=== PATIENT | male | born 1945 | race Caucasian/White ===

== ENCOUNTER → 2016-06-17 | Outpatient (CLI) | payer MEDICARE, OTHER ==
[~2016-06-17] MED LIST: ACTOS PO; ALDARA TOP; AMLACTIN140 GM TOP; ASPIRIN PO; ASPIRIN81 M2 PO; ASPIRIN81 MG PO; CELEBREX PO; COREG3.125 MG PO; COREG6.25 MG PO; CYCLOSET0.8 MG PO; EC-NAPROSYN500 MG PO; EFFIENT10 MG PO; GABAPENTIN300 M2 PO; GLIPIZIDE10 MG PO; GLUCOPHAGE850 MG PO; GLUCOTROL PO; GLUCOVANCE 2.5/1 TA1 PO; HCTZ PO; HYDROCHLOROTHIA25 MG PO; HYDROCODON-ACE1 EAC9 PO; IMDUR30 MG PO; LIPITOR PO; LIPITOR20 MG PO; LISINOPRIL PO; LISINOPRIL20 MG PO; LOVAZA1 G PO; METFORMIN HCL850 MG PO; METFORMIN PO; METROGEL 1% KIT1 EA TP; NEURONTIN300 MG PO; NITROGLYGERIN0.4 MG SL; NORVASC10 MG PO; PERCOCET5/325 PO; PRILOSEC20 M1 PO; PRILOSEC20 MG PO; TARKA 4/2401 BOTTLE PO; VERAPAMIL ER240 MG PO; VIMOVO 500-201 EACH PO; VIT B-12 PO; VITAMIN B12-FO1 EACH PO; WELCHOL3.75 GM PO
--- NOTE | ~2016-06-17 | MR134 ---
[facility] A Service of [facility] RADIOLOGY TEXT RESULTS PATIENT: JOHNATHAN STEWART LOCATION: CMRI : 47 UNIT #: [id number] AGE: [address]: García Gordillo II, MD SEX: M ORDER DR: [id number] [facility] [address] [place], [place] [address] [id number] O MR#: [id number] Acc #: [id number] NAME: JOHNATHAN STEWART. : 1945 SEX: M STUDY DATE/TIME: 06/17/2016 17:00 UNIT: CMRI ROOM: STUDY DESCRIPTION: MR MRA Neck Wo Contrast Attending Physician: García Gordillo II., M.D. Referring Physician: García Gordillo II., M.D. Ordering Physician: García Gordillo II., M.D. Primary Care Physician: Primary Care Physician No MRI CENTER REPORT This report is preliminary unless electronic signature is present. EXAM Neck MRA without contrast PROCEDURE Axial jodt-wm-ehbjyi neck MRA with three-dimensional reformats HISTORY Left arm numbness since September 2015. History of mini strokes. PROCEDURE Axial pwvw-ge-fyiqhn neck MRA with three-dimensional reformats. Both 2-D and 3-D acquisitions were performed through the carotid bifurcations. FINDINGS Both common internal and external carotid arteries are patent. The right carotid bifurcation is normal with no evidence of plaque or stenosis in the internal carotid by NASCET or other criteria. There does appear to be plaque in the left carotid bifurcation but no more than 20% left ICA stenosis by NASCET criteria. Both vertebral arteries are patent throughout the neck. IMPRESSION 0% right and 20% left ICA stenosis by NASCET criteria. Patent common and internal and external carotid and vertebral arteries bilaterally. Dictated by... Emmett Hart M.D. THIS IS AN ELECTRONICALLY VERIFIED REPORT Emmett Hart M.D. at 06/18/2016 1:51 PM TEV/to [facility] A Service of [facility] RADIOLOGY TEXT RESULTS PATIENT: JOHNATHAN STEWART LOCATION: CMRI : 47 UNIT #: [id number] AGE: [address]: García Gordillo II, MD SEX: M ORDER DR: TD: 06/18/2016 11:45 JOB #: [id number] MRI CENTER REPORT Page 1 of 1 COPY
--- NOTE | ~2016-06-17 | MR122 ---
[facility] A Service [facility] RADIOLOGY TEXT RESULTS PATIENT: JOHNATHAN STEWART LOCATION: CMRI : 47 UNIT #: [id number] AGE: [address]: García Gordillo II, MD SEX: M ORDER DR: [id number] [facility] [address] [place], [place] [address] [id number] O MR#: [id number] Acc #: [id number] NAME: JOHNATHAN STEWART. : 1945 SEX: M STUDY DATE/TIME: 06/17/2016 16:52 UNIT: CMRI ROOM: STUDY DESCRIPTION: MR MRA Head Wo Contrast Attending Physician: García Gordillo II., M.D. Referring Physician: García Gordillo II., M.D. Ordering Physician: García Gordillo II., M.D. Primary Care Physician: No Primary Care Physician MRI CENTER REPORT This report is preliminary unless electronic signature is present. EXAM Intracranial MR angiogram HISTORY Left arm numbness chronically over the past 1.5 years with previous history of TIAs. TECHNIQUE MR angiographic imaging was performed from the skull base to the [place] of [place]. FINDINGS As a normal variant, left A1 segment is absent or hypoplastic and both anterior cerebral arteries fill promptly from the right. There is no evidence of severe intracranial stenosis. No major branch vessel cutoff is noted. The basilar artery is of small caliber. No basilar stenoses are seen. No aneurysms are noted. IMPRESSION No acute findings. No evidence of aneurysm or major branch vessel cutoff or stenosis. As a normal variant, the left A1 segment is hypoplastic or absent and both anterior cerebral arteries fill predominantly from the right. Dictated by... Eric Rodriguez M.D. THIS IS AN ELECTRONICALLY VERIFIED REPORT Eric Rodriguez M.D. at 06/18/2016 10:46 AM RLF/cecy TD: 06/18/2016 10:16 [facility] A Service [facility] RADIOLOGY TEXT RESULTS PATIENT: JOHNATHAN STEWART LOCATION: [facility] : 47 UNIT #: [id number] AGE: [address]: García Gordillo II, MD SEX: M ORDER DR: JOSE #: [id number] MRI CENTER REPORT Page 1 of 1 COPY
== END | disposition home or self-care (01) ==
LOC: CMRI 15:51
DX: I63.9 Cerebral infarction, unspecified (principal); I65.22 Occlusion and stenosis of left carotid artery
CPT/HCPCS: 70544; 70547; 96372

== ENCOUNTER → 2016-07-02 | Outpatient (CLI) | payer OTHER | END | disposition home or self-care (01) | LOC: CECH 11:53 | DX: I63.9 Cerebral infarction, unspecified (principal) | CPT/HCPCS: 93306 ==

== ENCOUNTER 2016-10-06 16:40 | Inpatient (IN) | payer MEDICARE, OTHER ==
--- NOTE | ~2016-10-06 | DS ---
Unit #: [id number] #: [id number] Patient: JOHNATHAN LEY [id number] [address] [address] [id number] I MR#: [id number] NAME: JOHNATHAN LEY. ROOM: 551 Age: 71 Sex: M Admission Date: 10/06/2016 : 1945 Discharge Date: 10/08/2016 Attending Physician: Mikki Leal M.D. Primary Care Physician: Jhonny Koroma M.D. DISCHARGE SUMMARY PRIMARY CARE PHYSICIAN Jhonny Koroma M.D. PRINCIPAL DIAGNOSES 1. Hypotension, medication induced. 2. Bradycardia, medication induced. 3. Acute kidney injury secondary to hypotension. Discharge creatinine 1.2. 4. Hypertension, now uncontrolled. 5. Sick sinus syndrome. 6. Coronary artery disease status post stenting. 7. Hyperlipidemia with intolerance of statins. 8. Diabetes mellitus type 2, non-insulin requiring, but with associated peripheral neuropathy. 9. Gastroesophageal reflux disease. 10. Benign prostatic hypertrophy. 11. Status post skin cancer excision. 12. Obesity. 13. Osteoarthritis. 14. Hyperkalemia, now resolved. CONSULTANTS Dr. Bajwa - Cardiology. PROCEDURES 1. Lexiscan Cardiolite, which was negative for any ischemia. 2. Chest x-ray on October 06, 2016, with prominence of interstitial markings, healed granulomatous disease noted. CLINICAL HISTORY/HOSPITAL COURSE Mr. Ley is a very nice 71-year-old male who presents to the emergency department with dizziness, nausea and headache. In the emergency department, he is found to be hypotensive, in addition to being bradycardic with a heart rate in the 40s. He was also mildly hyperkalemic and creatinine was elevated at 1.5. The patient was given IV fluids and started on a low-dose dopamine drip and admitted to the hospital. Fortunately, the patient's blood pressure and heart rate improved and dopamine was discontinued. There was some discrepancy regarding his medications given he had [facility], but after review he appeared to unfortunately still be taking them, thus his hypotension and his bradycardia were likely medication induced. Unit #: [id number] #: [id number] Patient: BROWN,JOSE JUAN With adjustments of medication here, heart rate is now back up into the 70s and we are going to re-initiate a low dose of coreg. We will hold on any calcium channel blockers at this time. Blood pressure this morning is still mildly elevated and we are going to re-initiate some home medications and discharge later today if systolic blood pressure is running in the 150-160 range. Given the patient's complaint of fatigue and headache and such, Cardiology proceeded with stress test, but this is unremarkable. The patient also has significant hyperlipidemia, but is intolerant of statins due to significant myalgias. He would benefit from Repatha as an outpatient and this will be followed up by Dr. Bajwa. In regards to the patient's elevated kidney function, with cessation of medications and IV fluids, renal function has improved. I am going to re-initiate Lisinopril upon discharge given creatinine has improved and potassium is normal, but BMP will have to be followed up closely as an outpatient. The patient will be discharged home later today assuming blood pressure is improved. DISCHARGE CONDITION Stable. DISCHARGE STATUS Discharge to home. DISCHARGE MEDICATIONS 1. Neurontin 300 mg b.i.d. 2. Metformin 850 mg p.o. t.i.d. 3. Coreg 3.125 mg p.o. b.i.d. 4. Norvasc 10 mg daily 5. Lisinopril 20 mg daily 6. Aspirin 81 mg daily 7. Prilosec 20 mg daily 8. Glucotrol 20 mg b.i.d. 9. Vitamin B12/folic acid tablet one daily. DISCHARGE INSTRUCTIONS The patient was instructed to follow a heart healthy, constant carbohydrate diet. He will continue AccuChek a.c. and at bedtime at home. He can increase his activity as tolerated. FOLLOWUP The patient will follow up with Dr. Bajwa on November 20 at 3:15 in the afternoon. The patient can follow up with his primary care provider, Dr. Koroma in three weeks, needs repeat BMP at that time and again I will note, the patient needs Repatha arranged as an outpatient in regards to his hyperlipidemia. Dictated by... Mikki Leal M.D. GARY/mary TD: 10/08/2016 18:24 Unit #: [id number] #: [id number] Patient: JOHNATHAN LEY JOB #: [id number] DISCHARGE SUMMARY Page 1 of 1 X Mikki Leal MD X DISCHARGE SUMMARY
--- NOTE | ~2016-10-06 | CO ---
Unit #: [id number] #: [id number] Patient: JOHNATHAN STEWART [id number] [facility]. [place], [place] [address] [id number] I MR#: [id number] NAME: JOHNATHAN STEWART. ROOM: 551 Age: 71 Sex: M Admission Date: 10/06/2016 : 1945 Attending Physician: Mikki Leal M.D. Primary Care Physician: Jhonny Koroma M.D. Consultation Date: 10/07/2016 CONSULTATION REPORT REASON FOR CONSULTATION Chest pain and bradycardia. HISTORY OF PRESENT ILLNESS This is a 71-year-old male known to Dr. Bajwa with a prior medical history of coronary artery disease status post stents to his left circumflex, marginal, first diagonal, and distal LAD. His last cardiac cath in 2013 showed patent stents, 90% distal LAD near apex and 50% RV branch. At that time, it was decided to optimize medical management. An echocardiogram, June 2016, showed a LV EF of 55%, wrsm-mt-vywzkeks mitral regurgitation, and left ventricular hypertrophy. In addition, he has a history of diabetes mellitus, hypertension, hyperlipidemia, TIA in 2015, and reported tobacco abuse. He presented to the ER with dizziness, weakness, and low blood pressures. States he had been feeling fatigued for the last two weeks with increased shortness of air with activity and intermittent chest discomfort. He described his chest discomfort as left chest tightness and pressure with some lightheadedness that occurs while at rest or with activity. States that chest discomfort resolves spontaneously within a few minutes. His blood pressure in the ER was low, 87/60 to 94/52 and his heart rate was in the 40s junctional rhythm. He was placed on a dopamine drip with improvement in his heart rate. EKG showed no ischemic changes and his troponins were negative for ischemia as well. Patient denies radiating chest pain. Denies orthopnea or PND. He does report a near syncopal episode that occurred approximately 10 days ago. He states he was grilling outside and came in and sat down to eat and felt very dizzy, lightheaded with blurred vision. States he checked his blood pressure and it was in the low 70s. Symptoms resolved with rest. PAST MEDICAL HISTORY 1. Coronary artery disease, status post PTCA and stent to proximal circumflex in 2010, PTCA to distal LAD in April 2012, and PTCA with drug-eluting stent to anterior division of first diagonal branch of LAD in March 2012. 2. Cardiac cath in 2013 revealed patent stents, 90% distal LAD near apex, and 50% RV branch. 3. Echocardiogram, June 2016, revealed LV EF 55%, kntv-au-erkztced mitral regurgitation, and left ventricular hypertrophy. 4. Diabetes mellitus. 5. Hypertension. 6. Hyperlipidemia. 7. TIA in 2015. 8. Reformed tobacco abuse. Unit #: [id number] #: [id number] Patient: JOHNATHAN STEWART 9. Degenerative joint disease with chronic pain. 10. Benign prostatic hypertrophy. 11. Skin cancer with multiple skin cancer excisions. SOCIAL HISTORY He stopped smoking over 40 years ago. He normally drinks two to three beers a day but has not had any alcohol in the last two weeks. He lives with his who is a retired RN. FAMILY HISTORY His father at the age of 69 of black lung disease and cardiac disease. His brother, Dav, is 44 years old and has coronary artery disease and diabetes. PAST SURGICAL HISTORY 1. Arthroscopic right knee surgery. 2. Cardiac catheterization. 3. Skin cancer excision. 4. Cataract extraction. ALLERGIES Penicillin, Terramycin, and statins. HOME MEDICATIONS 1. Neurontin 300 mg p.o. twice a day. 2. Zestril 20 mg p.o. daily. 3. Metformin 850 mg p.o. three times a day. 4. Verapamil ER 240 mg p.o. daily. 5. Coreg 6.25 mg p.o. twice a day. 6. Prilosec 20 mg p.o. daily. 7. Vitamin B12 with folate one each once a day. 8. Hydrochlorothiazide 25 mg p.o. daily. 9. Glucotrol 20 mg p.o. twice a day before meals. 10. Imdur 30 mg p.o. daily. REVIEW OF SYSTEMS Positive for headache, nausea, lightheadedness, chest pressure, and tightness, chronic back pain, and dyspnea on exertion. Denies radiating pain. He does report that he wakes himself up with snoring. PHYSICAL EXAMINATION VITAL SIGNS: Temperature 98.4, heart rate 58, respiratory rate 20, blood pressure 141/62. Height 70 inches. Weight 116.2 kg. GENERAL: Very pleasant 71-year-old male resting in bed in no acute distress. HEENT: Head is atraumatic, normocephalic. Pupils are equal and round. Mucous membranes are moist. NECK: Supple. Trachea is midline. Negative for JVD. No carotid bruits. Carotid massage was performed and did not cause the patient's heart rate to slow. LUNGS: Clear and decreased in bases. Nonlabored respirations. CARDIOVASCULAR: S1, S2. Regular rate and rhythm. No murmur, rubs, or gallops. ABDOMEN: Soft, nontender, nondistended. EXTREMITIES: Pulses are palpable. No pedal edema. No cyanosis. NEUROLOGIC: Alert and oriented x3. Moves all extremities equally and follows commands without difficulty. Unit #: [id number] #: [id number] Patient: JOHNATHAN STEWART DIAGNOSTIC STUDIES LABORATORY: Sodium 135, potassium 4.6, chloride 100, BUN 22, creatinine 1.5, glucose 190. Hemoglobin 10.7, hematocrit 325, white blood cell count 7.8, platelets 139,000. AST 24, ALT 28, alkaline phosphatase 55. Point of care troponin was less than 0.05 and repeat troponins x2 were less than 0.03. IMAGING: Chest x-ray showed no acute findings. CARDIOVASCULAR: EKG done in the ER showed junctional rhythm with a ventricular rate of 42, nonspecific T-wave abnormalities, and a left axis deviation. EKG this morning shows sinus rhythm with a rate of 65. ASSESSMENT 1. Symptomatic bradycardia, secondary to sick sinus syndrome superimposed on beta cecil and calcium channel cecil effect. 2. Fatigue secondary to obstructive sleep apnea versus medications, hydrocodone and Neurontin. 3. Obesity. 4. Coronary artery disease, status post percutaneous coronary intervention and stents. 5. Stable angina. 6. Diabetes mellitus type 2. 7. Hyperlipidemia. 8. Reformed tobacco abuse. PLAN 1. We will discontinue Coreg and verapamil. 2. Walking Lexiscan Cardiolite study. 3. Nocturnal spirometry tonight. 4. Decreased Neurontin dosage to 300 mg q.i.d. 5. Up ad sergei in his room. 6. Check TSH. 7. Discontinue IV fluids. 8. Hemoglobin A1c. 9. Will add Norvasc for blood pressure control. Thank you for asking us to see this patient. We appreciate the consult. Dictated by... Jeanette Llamas APRN for Brionna Oconnor TD: 10/07/2016 15:41 JOB #: [id number] Unit #: [id number] #: [id number] Patient: JOHNATHAN STEWART CONSULTATION REPORT Page 1 of 1 X X CONSULTATION REPORT
--- NOTE | ~2016-10-06 | HP ---
Unit #: [id number] #: [id number] Patient: JOHNATHAN STEWART [id number] [facility]. [place], [place] [address] [id number] I MR#: [id number] NAME: JOHNATHAN STEWART. ROOM: 08725 Age: 71 Sex: M Admission Date: 10/06/2016 : 1945 Attending Physician: Cha Giles M.D. Primary Care Physician: Jhonny Koroma M.D. HISTORY AND PHYSICAL CHIEF COMPLAINT Dizziness, nausea, and headache. HISTORY OF PRESENT ILLNESS This pleasant 71-year-old male with CAD and normal LV function, AODM, and hypertension, is admitted for symptomatic bradycardia and hypotension. The patient states that about nine days ago he began to experience nausea, posterior headaches, and some dry heaves. He has been more fatigued, sleeping more, and experiencing episodes of lightheadedness. His reports that nine days ago after working in the heat, the patient had a near syncopal episode, and his systolic blood pressure was about 78. He had another episode where he was lightheaded after standing a couple of days ago. The patient also notes chest discomfort for the past two weeks oftentimes occurring at rest but also can occur with exertion radiating to the left arm. He presented to this emergency department this evening with a heart rate of 46 and blood pressure 94/52. EKG showed a junctional bradycardia. In reviewing the patient's home medicines, the patient is prescribed carvedilol, Cardura which was added about two weeks ago, and hydrochlorothiazide. However, he has an old list, and he may still be taking the verapamil and lisinopril from the old list, along with Imdur. He is unsure. His who is a nurse is going to check his medications at home. In addition to the above, patient does have a creatinine of 1.5 with a potassium of 5.7. In the ER, he was bolused with two liters of IV fluids, given Tylenol, and started on a low-dose dopamine drip, and his current heart rate is now 50 with a blood pressure of 136/68. The patient is feeling somewhat improved. He was also given calcium gluconate IV, along with D50, followed by 10 units of IV regular insulin, along with 3 amps of bicarbonate and IV fluids. PAST MEDICAL HISTORY 1. Adult-onset diabetes mellitus with peripheral neuropathy. 2. Benign prostatic hypertrophy. 3. Degenerative joint disease with chronic pain. 4. Hyperlipidemia. 5. Coronary artery disease, status post PCI and stents. Last cardiac catheterization by Dr. Bajwa in June 2013 showed that the stents were patent, although there was a 50% stenosis of the right ventricular branch and 90% stenosis of a very focal small area of the LAD near the apex. Unit #: [id number] #: [id number] Patient: JOHNATHAN STEWART 6. Hypertension. 7. Mini-strokes seen on MRI scan last year at the [facility]. 8. Arthroscopic right knee surgery. 9. Skin cancer with multiple skin cancers excised. 10. Cataract extraction. ALLERGIES Terramycin, penicillin, and statins. HOME MEDICATIONS 1. Coreg 6.25 mg b.i.d. 2. Cardura recently added 8 mg at bedtime. 3. Fish oil 1000 mg b.i.d. 4. Neurontin 600 mg q.i.d. 5. Glipizide 10 mg 2 tablets b.i.d. 6. Hydrochlorothiazide 25 mg daily. 7. [place] 2.5 mg q.6 hours as needed. 8. NovoLog 5 units t.i.d. with meals if Accu-Chek is greater than 200. 9. Lantus 20 units subcutaneous b.i.d. 10. Ketoconazole cream. 11. Metformin 500 mg 2 tablets b.i.d. 12. Omeprazole 20 mg daily. 13. The patient was previously also taking Imdur 30 mg daily, lisinopril 40 mg daily, and verapamil 240 mg daily, and is unsure whether he stopped these medicines as advised at the [facility]. FAMILY HISTORY Coronary artery disease. SOCIAL HISTORY The patient lives with his , Sara, who was previously a charge nurse on 4B-4C at this facility. He also lives with Joe, his [place]. The patient stopped smoking in his 20s and does drink occasional beer. REVIEW OF SYSTEMS Notable for headache, nausea, lightheadedness, chest pain, CAD, AODM, BPH, peripheral neuropathy, chronic back pain with DJD, hyperlipidemia, skin cancers, and above-mentioned surgeries. All other systems were reviewed and are otherwise negative. PHYSICAL EXAMINATION GENERAL: A very pleasant, young-appearing, moderately obese, 71-year-old male currently in no acute distress. VITAL SIGNS: Temperature 97.6, pulse 46 initially, current heart rate is 54 on 2.5 mcg of dopamine, respirations 16, initial blood pressure 94/52 which has improved to 136/68, respirations 17, and O2 saturations is 96% on room air. HEENT: Eyes PERRLA. Extraocular muscles are intact. Pharynx is benign. NECK: Supple without adenopathy or thyromegaly. CHEST: Clear. CARDIAC: Normal S1 and S2, slightly bradycardic, without murmur. ABDOMEN: Bowel sounds are present. No hepatosplenomegaly, tenderness, or masses. EXTREMITIES: Without clubbing, cyanosis, or edema. Pedal pulses are present, but diminished. No ulcers on the feet. NEUROLOGIC: Patient is awake, alert, and oriented. Cranial nerves are intact. Equal strength throughout. Unit #: [id number] #: [id number] Patient: JOHNATHAN STEWART DIAGNOSTIC STUDIES ADMISSION LABORATORY: Hematocrit is 36.1 with normal white count and platelet count. SMA-12: Glucose is 245, creatinine 1.5, sodium 132, potassium 5.7, and chloride is 99. Lactic acid is 1.5. Cardiac markers negative. IMAGING: Chest x-ray shows prominent interstitial markings and old granulomatous disease. CARDIOLOGY: EKG shows junctional rhythm, rate 41. ASSESSMENT 1. Hypotension and junctional bradycardia probably related to medications. The patient is symptomatic with the above. I am unsure whether he stopped his lisinopril and verapamil, along with Imd[facility]. He may be overmedicated. 2. Acute kidney injury probably due to decreased oral intake from nausea. This is associated with hyperkalemia. 3. Benign prostatic hypertrophy. 4. Headaches and nausea. 5. Coronary artery disease, status post percutaneous coronary intervention and stent, with normal ejection fraction, however, with episodes of recent chest pain. 6. Degenerative joint disease with chronic pain. 7. Adult-onset diabetes mellitus with peripheral neuropathy. 8. Hypertension. 9. Hyperlipidemia. 10. Skin cancers removed. PLANS 1. IV fluids and continue low-dose dopamine drip until heart rate is above 58 or 60. 2. is going to review all of the patient's home medicines to see if he accidentally is taking verapamil, lisinopril, and Imdur, in addition to his prescribed hydrochlorothiazide, Cardura, and Coreg. 3. Hold metformin, Cardura, hydrochlorothiazide, and Coreg for now until vital signs improve. 4. Check postvoid bladder scan and urinalysis. 5. Cardiology consultation. 6. Recheck labs in a few hours. 7. TSH. 8. DVT prophylaxis. 9. If headache and nausea persist despite treatment for the above, will work up further also. 1. Dictated by Cha Giles M.D. AML/am TD: 10/06/2016 21:35 JOB #: [id number] Unit #: [id number] #: [id number] Patient: JOHNATHAN STEWART HISTORY AND PHYSICAL Page 1 of 1 X Cha Giles MD HISTORY AND PHYSICAL
--- NOTE | ~2016-10-06 | ST ---
Unit #: [id number] #: [id number] Patient: JOHNATHAN STEWART [id number] [facility]. [address] [address] [id number] I MR#: [id number] NAME: JOHNATHAN STEWART. : 1945 SEX: M STUDY DATE/TIME: 10/07/2016 UNIT: C5B ROOM: 551 STUDY DESCRIPTION: Walking Lexiscan stress test Attending Physician: Mikki Leal M.D. Primary Care Physician: Jhonny Koroma M.D. CARDIOLOGY REPORT STUDY PERFORMED EKG portion of a walking Lexiscan Cardiolite stress test. REASON FOR EXAM Intermittent chest pressure. PROCEDURE Baseline EKG shows sinus rhythm with ventricular rate of 63 and inverted T waves in leads V1. A total of 0.4 mg of Lexiscan was injected per protocol, followed by Cardiolite. The patient ambulated on the treadmill for 4 minutes. The patient had no symptoms during the test. There were no significant ST changes and no arrhythmias. The test was stopped due to protocol completion. IMPRESSION 1. This is an equivocal test. 2. There were no significant ST changes. 3. The patient had no symptoms. 4. Please correlate with Cardiolite imaging. Dictated by... Jeanette Llamas APRN for Brionna Robertson TD: 10/07/2016 13:30 JOB #: [id number] Unit #: [id number] #: [id number] Patient: JOHNATHAN STEWART CARDIOLOGY REPORT Page 1 of 1 X CARDIOLOGY REPORT
--- NOTE | ~2016-10-06 | A ---
[facility] Nutrition Therapy DATE: 10/07/16 Patient: JOHNATHAN STEWART Physician: DANTE Address: [address] Room/Bed: [address] [place] [address], Zip: [place] [address] Admit Date: 10/06/16 Date of : 49 Height: 5 10 Weight: 256 116.2 NUTRITIONAL ASSESSMENT: REASON: Consult re: DM diet education 71 y/o male admitted for bradycardia, low BP, CED PMH: DM, HTN, CAD, HLD, skin cancer Anthropometrics: ht: 5'10" wt: 256# BMI: 36 Labs: Glu 190, Accuchecks 117-308, Creat 1.5, Ca++ 8.3, HgbA1c 7.9, GFR 46.8 Diet: Healthy Heart Assessment: Chart reviewed, events noted. Seeing pt for consult re: DM diet education. RD internal combustion engine subassembler spoke to pt and pt's at bedside. Pt reports eating whatever he wants at home and monitoring his blood glucose. RD internal combustion engine subassembler provided written and verbal education on carbohydrate counting and provided examples of healthy foods for the patient, setting a goal to include more healthy snacks. RD internal combustion engine subassembler answered several questions regarding healthy foods from the pt and pt's . RD will remain available. Intervention: 1. Diet education Recommendations: 1. Add consistent carbohydrate diet to current healthy heart diet order. 2. Encourage compliance with diabetic diet management. 3. This patient would benefit from following-up with an outpatient dietitian for assistance with diabetes management. RD will f/u per protocol. Respectfully, CONI CRUZ, sports management internship Elena Macedo RD LD Food and Nutritional Services [facility] Nutrition Therapy DATE: 10/07/16 Patient: JOHNATHAN STEWART Physician: DANTE Address: [address] Room/Bed: [address] [place] [address], Zip: [place] [address] Admit Date: 10/06/16 Date of : [birth year] Height: 5 10 Weight: 256 116.2 cc: client file
--- NOTE | ~2016-10-06 | EKG ---
PATIENT: JOHNATHAN STEWART UNIT #: [id number] Ventricular Rate: 59 BPM Atrial Rate: 59 BPM P-R Interval: 156 ms QRS Duration: 96 ms Q-T Interval: 436 ms QTC Calculation(Bezet): 431 ms P [place]: -12 degrees Calculated R [place]: 8 degrees Calculated T [place]: 14 degrees Diagnosis Line: Sinus bradycardia Diagnosis Line: Otherwise normal ECG Diagnosis Line: When compared with ECG of 06-OCT-2016 17:47, Diagnosis Line: (unconfirmed) Diagnosis Line: Sinus rhythm has replaced Junctional rhythm Diagnosis Line: QT has lengthened Diagnosis Line: Confirmed by RAF WHITT MD ([id number]) on Diagnosis Line: 10/08/2016 10:34:17 AM INTERPRETING MD: JOSE EDUARDO RAMSEY
--- NOTE | ~2016-10-06 | TH ---
Unit #: [id number] #: [id number] Patient: JOHNATHAN STEWART [id number] [facility]. [address] [place], [place] [address] [id number] MR#: [id number] NAME: JOHNATHAN STEWART. : 1945 SEX: M STUDY DATE/TIME: 10/07/2016 UNIT: [id number] ROOM: 551 STUDY DESCRIPTION: Lexiscan stress test - Nuclear Attending Physician: Mikki Leal M.D. Primary Care Physician: Jhonny Koroma M.D. CARDIOLOGY REPORT PROCEDURE PERFORMED Lexiscan Cardiolite stress test - Nuclear portion. PROCEDURE Using technetium 99m-labeled Cardiolite, rest and stress SPECT images were obtained. Multiple SPECT images were obtained in various views, including horizontal and vertical long axis and short axis views of the left ventricle. Images were obtained by gated SPECT method. The patient was administered 10.87 mCi of Cardiolite at rest. The patient was administered 32.7 mCi of Cardiolite after Lexiscan infusion was completed. On the stress images, there is a small area of mildly decreased tracer uptake activity in the inferoapical wall. The rest images also show a small area of mildly decreased tracer uptake activity inferoapically. Comparing the rest and stress images, there is no obvious stress-induced ischemia noted. The small area of predominantly fixed defect seen inferoapically is most likely due to soft tissue artifact. The left ventricular ejection fraction is calculated to be 62%. There is no focal wall motion abnormality seen. CONCLUSION 1. No obvious stress-induced ischemia noted. 2. There is a small area of predominantly fixed defect seen inferoapically, most likely due to soft tissue artifact. 3. The left ventricular ejection fraction is calculated to be 62%. 4. There is no focal wall motion abnormality seen. 5. The left ventricular cavity is mildly dilated both at rest and post stress. 6. Normal Lexiscan Cardiolite stress test. 7. Technically limited study due to the patient's body habitus. Clinical correlation is requested. Dictated by..Brionna Cameron TD: 10/07/2016 14:58 JOB #: [id number] Unit #: [id number] #: [id number] Patient: TERRYJOSE JUAN CARDIOLOGY REPORT Page 1 of 1 X Radha Alejandre MD <ELECTRONICALLY SIGNED> 10/17/16 [id number] CARDIOLOGY REPORT
--- NOTE | ~2016-10-06 | CR72 ---
[facility] A Service of [facility] & [facility] RADIOLOGY TEXT RESULTS PATIENT: JOHNATHAN STEWART LOCATION: [place] [address]- : [birth year] UNIT #: [id number] AGE: [address]: Mikki Leal MD SEX: M ORDER DR: [id number] [facility] [address] [place], [place] [address] [id number] MR#: [id number] Acc #: [id number] NAME: JOHNATHAN STEWART. : 1945 SEX: M STUDY DATE/TIME: 10/06/2016 18:17 UNIT: [facility] ROOM: [facility] STUDY DESCRIPTION: CR Chest Single View Portable Attending Physician: Cha Giles M.D. Ordering Physician: Eric Renner M.D. Primary Care Physician: Jhonny Koroma M.D. MEDICAL IMAGING REPORT This report is preliminary unless electronic signature is present EXAM Single view of the chest dated 10/06/2016, at 1817 hours. COMPARISON Chest 2 views dated 09/28/2013. HISTORY Shortness of air, chest pain which radiates to the left arm for 3 weeks. FINDINGS Single view of the chest was obtained. It is a poor inspiratory film without any significant new patchy dense consolidation, pleural effusion or pneumothorax. There is prominence of interstitial markings which could be related to crowding from poor inspiration or mild interstitial lung disease. It is relatively new when compared to the prior study from 3 years ago. Calcified right hilar lymph nodes are redemonstrated suggestive of old granulomatous disease. Endplate osteophytes are noted in the thoracic spine. Dictated by... Savannah White M.D. THIS IS AN ELECTRONICALLY VERIFIED REPORT Savannah White M.D. at 10/07/2016 11:33 AM CPR/jt TD: 10/07/2016 00:08 JOB #: [id number] MEDICAL IMAGING REPORT Page 1 of 1 COPY
--- NOTE | ~2016-10-06 | EKG ---
PATIENT: JOHNATHAN STEWART UNIT #: [id number] Ventricular Rate: 41 BPM Atrial Rate: 41 BPM QRS Duration: 76 ms Q-T Interval: 468 ms QTC Calculation(Bezet): 386 ms Calculated R [place]: 17 degrees Calculated T [place]: 10 degrees Diagnosis Line: Junctional bradycardia Diagnosis Line: Abnormal ECG Diagnosis Line: When compared with ECG of 12-JUL-2013 11:20, Diagnosis Line: Junctional rhythm has replaced Sinus rhythm Diagnosis Line: Vent. rate has decreased BY 21 BPM Diagnosis Line: Confirmed by RAF WHITT MD ([id number]) on Diagnosis Line: 10/08/2016 10:31:36 AM INTERPRETING MD: JOSE EDUARDO RAMSEY
[~2016-10-06 16:40] MED LIST changes: -ASPIRIN81 MG PO; -COREG3.125 MG PO; -NORVASC10 MG PO
[2016-10-06 18:07] LABS: BASOPHIL% 0.5 % (0-2.5); EOSINOPHIL# 0.1 X10e3 (0-0.7); EOSINOPHIL% 1.8 % (0.0-7.0); HEMATOCRIT 36.1 % (38.0-50.0); HEMOGLOBIN 11.5 gm/dL (13.0-16.0); LYMPHOCYTE# 1.4 X10e3 (1.0-3.5); LYMPHOCYTE% 27.2 % (17.0-45.0); MEAN CELL VOLUME 87.9 FL (83-96); MEAN CORPUSCULAR HEMOGLOBIN 28.1 PG (28-34); MEAN PLATELET VOLUME 9.1 FL (6.5-11.5); MONOCYTE# 0.6 X10e3 (0-1.0); MONOCYTE% 10.9 % (3.0-12.0); NEUTROPHIL# 3.2 X10e3 (1.5-7.1); NEUTROPHIL% 59.6 % (40-75); PLATELET COUNT 163 X10e3 (140-420); RED BLOOD COUNT 4.11 X10e (3.90-5.60); RED CELL DISTRIBUTION WIDTH 13.8 % (11.0-15.5); WHITE BLOOD COUNT 5.3 X10e3 (4.0-10.5)
[2016-10-06 18:21] LABS: POC - CKMB 10.2 ng/mL (0.0-7.9); POC - TROPONIN <0.05 ng/mL (<=0.05)
[2016-10-06 18:26] LABS: DIFF IND NO
[2016-10-06 18:56] LABS: ALBUMIN SERUM 3.6 g/dL (3.5-5.0); BILIRUBIN, DIRECT 0.1 mg/dL (0.0-0.2); BILIRUBIN,INDIRECT 0.8 mg/dL (0.0-0.9); BILIRUBIN,TOTAL 0.9 mg/dL (0.2-2.0); BUN/CREATININE RATIO 15.33; CALCIUM SERUM 8.5 mg/dL (8.4-10.2); CREATININE SERUM 1.5 mg/dL (0.6-1.4); GLOM FILT RATE Estimated 46.8 mL/min (>60); PROTEIN TOTAL SERUM 6.9 g/dL (6.0-8.3)
[2016-10-06 18:57] LABS: POTASSIUM 5.7 mmol/L (3.5-5.1)
[2016-10-07 00:44] LABS: PARTIAL THROMBOPLASTIN TIME 24.9 SECONDS (23.5-31.3); PROTHROMBIN TIME (PATIENT) 11.1 SECONDS (10.0-11.7)
[2016-10-07 01:13] LABS: BUN/CREATININE RATIO 14.11; CALCIUM SERUM 8.4 mg/dL (8.4-10.2); CREATININE SERUM 1.7 mg/dL (0.6-1.4); GLOM FILT RATE Estimated 40.3 mL/min (>60); POTASSIUM 5.1 mmol/L (3.5-5.1)
[2016-10-07 01:25] LABS: URINE APPEARANCE CLEAR; URINE BILIRUBIN NEG (NEG); URINE BLOOD NEG (NEG); URINE COLOR YELLOW; URINE GLUCOSE >1000 MG/DL (NEG); URINE KETONE NEG (NEG); URINE LEUKOCYTE ESTERASE NEG (NEG); URINE NITRATE NEG (NEG); URINE PROTEIN NEG (NEG); URINE SPECIFIC GRAVITY 1.018 (1.003-1.035); URINE UROBILINOGEN 0.2 MG/DL (NEG)
[2016-10-07 01:32] LABS: MB 12.6 ng/ml
[2016-10-07 06:10] LABS: HEMATOCRIT 32.5 % (38.0-50.0); HEMOGLOBIN 10.7 gm/dL (13.0-16.0); MEAN CELL VOLUME 87.5 FL (83-96); MEAN CORPUSCULAR HEMOGLOBIN 28.8 PG (28-34); MEAN CORPUSCULAR HGB CONC 32.9 g/dL (30-36); MEAN PLATELET VOLUME 8.9 FL (6.5-11.5); RED BLOOD COUNT 3.72 X10e (3.90-5.60); WHITE BLOOD COUNT 7.8 X10e3 (4.0-10.5)
[2016-10-07 06:37] LABS: BUN/CREATININE RATIO 14.66; CALCIUM SERUM 8.3 mg/dL (8.4-10.2); CREATININE SERUM 1.5 mg/dL (0.6-1.4); GLOM FILT RATE Estimated 46.8 mL/min (>60); POTASSIUM 4.6 mmol/L (3.5-5.1)
[2016-10-07 06:57] LABS: %MB 3.9 % (0.0-4.0); MB 11.7 ng/ml
[2016-10-07 11:48] LABS: IRON SERUM 41 ug/dL (45-182); TOTAL IRON BINDING CAPACITY 438 ug/dL (252-460); TRANSFERRIN 313 mg/dL (180-329); TRANSFERRIN SATURATION 9 % (20-50)
[2016-10-08 05:20] LABS: HEMATOCRIT 34.9 % (38.0-50.0); HEMOGLOBIN 11.2 gm/dL (13.0-16.0); MEAN CELL VOLUME 88.2 FL (83-96); MEAN CORPUSCULAR HEMOGLOBIN 28.2 PG (28-34); RED BLOOD COUNT 3.96 X10e (3.90-5.60); RED CELL DISTRIBUTION WIDTH 13.8 % (11.0-15.5); WHITE BLOOD COUNT 5.8 X10e3 (4.0-10.5)
[2016-10-08 05:44] LABS: CALCIUM SERUM 8.3 mg/dL (8.4-10.2); CREATININE SERUM 1.2 mg/dL (0.6-1.4); GLOM FILT RATE Estimated 61.3 mL/min (>60); POTASSIUM 3.8 mmol/L (3.5-5.1)
[2016-10-08] MEDS ORDERED: ASPIRIN81 MG PO (14:32)
[2016-10-08] MEDS ORDERED: COREG3.125 MG PO (14:32)
[2016-10-08] MEDS ORDERED: NORVASC10 MG PO (14:33)
== END 2016-10-08 14:54 | disposition home or self-care (01) | DRG 309 ==
LOC: CED 16:40 → CEDOF 21:09 → C5B 21:30 → CEDOF 22:30 → C5B 10-07 06:46
PROVIDERS: Emergency Medicine; Internal Medicine
DX: R00.1 Bradycardia, unspecified (principal); N17.9 Acute kidney failure, unspecified; E11.42 Type 2 diabetes mellitus with diabetic polyneuropathy; I95.2 Hypotension due to drugs; E11.65 Type 2 diabetes mellitus with hyperglycemia; T46.4X5A Adverse effect of angiotensin-converting-enzyme inhibitors, initial encounter; T46.1X5A Adverse effect of calcium-channel blockers, initial encounter; N40.0 Benign prostatic hyperplasia without lower urinary tract symptoms; R51 Headache; R11.0 Nausea; I25.10 Atherosclerotic heart disease of native coronary artery without angina pectoris; Z95.5 Presence of coronary angioplasty implant and graft; I10 Essential (primary) hypertension; E78.5 Hyperlipidemia, unspecified; Z85.828 Personal history of other malignant neoplasm of skin; R53.83 Other fatigue; D64.9 Anemia, unspecified; G89.29 Other chronic pain; Z87.891 Personal history of nicotine dependence
CPT/HCPCS: 36415; 71010; 78452; 80048; 80076; 81003; 82550; 82553; 82607; 82947; 83036; 83540; 83550; 83605; 84443; 84484; 85025; 85027; 85610; 85730; 87040; 87086; 93005; 93017; 94760; 96361; 96374; 99291; A9500; J0360; J0610; J1265; J1650; J1815; J2405; J2785; J7060